=== PATIENT | male | born 1975 | race African-American/Black ===

== ENCOUNTER 2023-09-16 13:10 | Emergency (ER) | payer BC | END 2023-09-16 14:00 | disposition home or self-care (01) | LOC: NAV ERS 13:10 | DX: I10 Essential (primary) hypertension (principal); K21.9 Gastro-esophageal reflux disease without esophagitis; F17.200 Nicotine dependence, unspecified, uncomplicated; Z79.899 Other long term (current) drug therapy | CPT/HCPCS: 99283 ==